=== PATIENT | female | born 1950 | race Caucasian/White ===

== ENCOUNTER 2016-05-18 08:54 | Emergency (ER) | payer MEDICARE ==
[2016-05-18 13:40] LABS: BASOPHILS 0.5 %; BASOPHILS ABSOLUTE 0.03 10/3/uL (0.0-0.16); EOSINOPHILS 0.5 %; EOSINOPHILS ABSOLUTE 0.03 10/3/uL (0.0-0.53); HEMATOCRIT 39.8 % (36.0-48.0); IMMATURE GRANULOCYTES 0.2 %; IMMATURE GRANULOCYTES ABSOLUTE 0.01 10/3/uL (0.0-0.11); LYMPHOCYTES 24.5 %; LYMPHOCYTES ABSOLUTE 1.46 10/3/uL (0.67-4.30); MANUAL DIFF NO %; MEAN CORPUS HGB CONC 32.7 g/dL (32.0-36.0); MEAN CORPUSCULAR HEMOGLOB 28.9 pg (26.0-34.0); MEAN CORPUSCULAR VOLUME 88.4 fL (80-100); MEAN PLATELET VOLUME 10.1 fL (9.2-13.0); MONOCYTES ABSOLUTE 0.42 10/3/uL (0.21-1.20); NEUTROPHILS 67.3 %; NEUTROPHILS ABSOLUTE 4.02 10/3/uL (2.02-8.40); PLATELET COUNT 210 10/3/uL (150-400); RBC DISTRIBUTION WIDTH 13.2 % (12.0-16.0)
[2016-05-18 13:55] LABS: A/G RATIO 1.1 (0.7-1.9); ALBUMIN 3.6 G/DL (3.5-5.0); BUN (BLOOD UREA NITROGEN) 19 MG/DL (6-23); CALCIUM, SERUM 8.9 MG/DL (8.5-10.4); CHLORIDE, SERUM 105 MMOL/L (96-112); CO2 (CARBON DIOXIDE) 30 MMOL/L (24-34); GFR AFRICAN AMERICAN 68 ML/MIN (>=60); GFR NON AFRICAN AMERICAN 59 ML/MIN (>=60); GLOBULIN 3.2 G/DL (2.5-4.1); GLUCOSE, SERUM 98 MG/DL (60-99); POTASSIUM, SERUM 4.6 MMOL/L (3.5-5.3); SGOT(AST) 19 U/L (5-40); SGPT(ALT) 26 U/L (5-65); SODIUM, SERUM 142 MMOL/L (135-148); TOTAL BILIRUBIN 0.6 MG/DL (0-1.2); TOTAL PROTEIN 6.8 G/DL (6.0-8.5)
[2016-05-18 13:56] LABS: ALKALINE PHOSPHATASE 65 U/L (45-117)
[2016-05-18] MEDS ORDERED: MAGOX4 PO (14:46)
[2016-05-18] MEDS ORDERED: ESTRACE1 MG PO (14:47)
[2016-05-18] MEDS ORDERED: PRIN10 PO (14:47)
[2016-05-18] MEDS ORDERED: ZOCOR20 PO (14:47)
[2016-05-18] MEDS ORDERED: FLONASE NAS (14:47)
[2016-05-18] MEDS ORDERED: VITAMIN D1000 UNI1 PO (14:47)
[2016-05-18] MEDS ORDERED: LOP25 PO (14:48)
[2016-05-18] MEDS ORDERED: LEVOTHYROXIN100 MCG PO (14:48)
[2016-05-18] MEDS ORDERED: LOP50 PO (14:48)
[2016-05-18] MEDS ORDERED: MOBIC15 MG PO (14:48)
[2016-05-18] MEDS ORDERED: FERROUS SULF325 M1 PO (14:49)
[2016-05-18] MEDS ORDERED: VITAMIN B PO (14:49)
[2016-05-18] MEDS ORDERED: KRILL OIL PO (14:49)
[2016-05-18] MEDS ORDERED: ASAB PO (14:50)
[2016-05-18 14:55] LABS: TROPONIN I <0.02 NG/ML (<0.05)
== END 2016-05-18 18:30 | disposition home or self-care (01) ==
LOC: ER 08:54
PROVIDERS: Emergency Medicine
DX: R07.9 Chest pain, unspecified (principal); Z79.899 Other long term (current) drug therapy
CPT/HCPCS: 71010; 80053; 84484; 85025; 93005; 96374; 96375; 99285; A9270-GY; J2405

== ENCOUNTER 2016-05-20 21:26 | Observation (INO) | payer MEDICARE ==
--- NOTE | ~2016-05-20 | HP ---
History And Physical [id number] [place]. [address] NAME: SUZETTE CANADA : 50 STATUS : ADM Bear PAT#: [id number] AGE: 66 ADM/REG DATE : 05/20/16 MR#: [id number] REPORT SERV DATE: 05/21/16 DICTATED BY: DALTON RUSH DATE: 05/21/16 REPORT STATUS : Draft TRANSCRIBED BY: MODL DATE: 05/21/16 DATE OF ADMISSION: 05/20/2016 OPERATING ROOM SPECIALIST: Román Vasquez MD CHIEF COMPLAINT: Chest pain and tightness. HISTORY OF PRESENT ILLNESS: A very pleasant 66-year-old white female with no known history of CAD, but followed by Dr. Vasquez for palpitations, well managed with beta valentín and pill in pocket approach. The patient states that over the past five days, she has experienced some episodic chest pain that at times radiates to her left arm. She came to our facility on Wednesday, 05/18, was discharged home from the emergency room to set up an outpatient stress test, but unfortunately, the paperwork was seemingly filled out incorrectly, and she was unable to schedule the test. She returns last night after an episode on 05/20 where she had "a whole lot of hurting" while she indicates her mid chest and left arm. She indicates around her left breast and into her left arm described as a tightness or "tight bra." She reports associated shortness of breath, nausea, and dizziness. Denies diaphoresis or belching. She did try Pepcid that did not help. Her chest discomfort was rated an 8/10 at its most intense. At time of interview in the [facility], she is pain free. She states the episode lasted several hours in duration. It was eventually resolved either with time or morphine and nitro paste by the emergency room. There is seemingly no clear pattern or exertional component, so she states that she is more aware of the discomfort at night when she is more inactive. The patient denies any personal history of myocardial infarction, stroke, DVT, or pulmonary embolus. The patient seemingly underwent a cardiac cath by Dr. Anne or Dr. Coffey at [facility] in 2010, which was negative per patient's report. The patient denies any recent fever or chills. Describes frequent palpitations. No syncopal episodes. Denies PND or orthopnea. PAST MEDICAL HISTORY: 1. Palpitations, on beta valentín with pill in pocket approach. 2. Hypertension. 3. Dyslipidemia. 4. BMI greater than 40. 5. Hypothyroid, on replacement. 6. Positive family history for early CAD. PAST SURGICAL HISTORY: 1. Hysterectomy. 2. Two hernia repairs. 3. UVPP for sleep apnea. SOCIAL HISTORY: She is . One son . Retired from [employer]. Does not have an exercise routine. Denies tobacco, alcohol, or illicits. History And Physical [address] [place]. [address] NAME: SUZETTE CANADA : 50 STATUS : ADM Bear PAT#: [id number] AGE: 66 ADM/REG DATE : 05/20/16 MR#: [id number] REPORT SERV DATE: 05/21/16 DICTATED BY: DALTON RUSH DATE: 05/21/16 REPORT STATUS : Draft TRANSCRIBED BY: SAQIB DATE: 05/21/16 FAMILY HISTORY: Father with a heart attack at 41, at 75. Mother with three strokes in her 70s, remains alive at 87. Brother with CAD and bypass at 54, remains alive at 61. Son in his 40s of a heart problem, but seemingly not a heart attack. He also had issues with some alcohol and liver disease. REVIEW OF SYSTEMS: A 14-point review of systems performed, significant for HPI. No other contributory diagnoses identified. ALLERGIES: NO KNOWN DRUG ALLERGIES. HOME MEDICATIONS: Aspirin 81 mg daily, vitamin D3 1000 units daily, vitamin B12 1000 mcg daily, estradiol 1 mg daily, ferrous sulfate 325 mg daily, Krill oil daily, levothyroxine 100 mcg daily, lisinopril 10 mg daily, magnesium 400 mg daily, metoprolol tartrate 25 mg daily p.r.n. and metoprolol tartrate 50 mg twice daily, simvastatin 20 mg daily. PHYSICAL EXAMINATION: VITAL SIGNS: Bilateral blood pressures on arrival, right 113/56 and left 103/53, this morning 107/53; pulse 66; respirations 16; temperature 97.9; O2 saturation 96% on room air. Height 5 feet 3 inches. Weight 230 pounds. BMI 40.7. GENERAL: Cooperative, in no apparent distress. HEENT: Pupils 2 mm, sclera nonicteric. Nares patent. Moist mucous membranes. No xanthelasma. NECK: Trachea midline, no thyromegaly. No JVD. No bruits. LYMPH: No cervical lymphadenopathy. No supraclavicular lymphadenopathy. RESPIRATORY: Unlabored respirations. Breath sounds clear bilaterally to posterior auscultation. No wheezes or rhonchi. CARDIOVASCULAR: Regular rate. No murmur, rub or gallop appreciated. Extremities without edema. Pulses 2+ bilaterally. ABDOMEN: Soft, nontender, nondistended, normal bowel sounds auscultated throughout. No organomegaly. SKIN: Warm, dry extremities. No pallor, or cyanosis. PSYCHIATRIC: Appropriate affect. Alert, oriented x3. LABORATORY DATA: Troponin less than 0.02 twice, potassium 4.3, BUN 30, creatinine 1.26, glucose 113, magnesium 2.4. WBC 7.5, hemoglobin 13.5, hematocrit 41.2, platelet count 216,000. EKG, sinus rhythm. PRWP. Echo 2000, normal study. Cath in 10/[address] Coffey, minimal LAD disease, 10% stenosis with minor luminal irregularities in the mid RCA EF 55%. ASSESSMENT AND PLAN: 1. Substernal chest pain in patient with risk factors of hypertension, dyslipidemia, and family history. The patient has been observed in the CP[facility] overnight to rule out myocardial infarction with serial enzymes and serial EKGs and held n.p.o. for cardiac PET this morning. Given BMI greater than 40, the patient will be discharged home if low risk, no ischemia. If anything suggestive of ischemia, Cardiology referral will be initiated. Otherwise, the patient be asked to follow up her PCP and Dr. Vasquez as appropriate. History And Physical [address] [address] NAME: SUZETTE CANADA : 50 STATUS : ADM Bear PAT#: [id number] AGE: 66 ADM/REG DATE : 05/20/16 MR#: [id number] REPORT SERV DATE: 05/21/16 DICTATED BY: DALTON RUSH DATE: 05/21/16 REPORT STATUS : Draft TRANSCRIBED BY: SAQIB DATE: 05/21/16 2. Hypertension. Monitor blood pressure. Continue home medications. Hold beta-valentín. Resume after cardiac PET. 3. Dyslipidemia. Continue statin. 4. History of palpitations. We will check a TSH and free T4. YASIR/SAQIB LIONEL Tesfaye, [employer] / [id number] CC: LIONEL Tesfaye, [employer] Shana Lowe Jr., M.D.
[2016-05-20 21:00] LABS: BASOPHILS 0.4 %; BASOPHILS ABSOLUTE 0.03 10/3/uL (0.0-0.16); EOSINOPHILS 0.7 %; EOSINOPHILS ABSOLUTE 0.05 10/3/uL (0.0-0.53); ER CBC TAT 0 Hrs 05 Mins; HEMATOCRIT 41.2 % (36.0-48.0); HEMOGLOBIN 13.5 g/dL (12.0-16.0); IMMATURE GRANULOCYTES 0.3 %; IMMATURE GRANULOCYTES ABSOLUTE 0.02 10/3/uL (0.0-0.11); LYMPHOCYTES 17.2 %; LYMPHOCYTES ABSOLUTE 1.29 10/3/uL (0.67-4.30); MANUAL DIFF NO %; MEAN CORPUS HGB CONC 32.8 g/dL (32.0-36.0); MEAN CORPUSCULAR HEMOGLOB 28.9 pg (26.0-34.0); MEAN CORPUSCULAR VOLUME 88.2 fL (80-100); MEAN PLATELET VOLUME 10.1 fL (9.2-13.0); MONOCYTES 7.3 %; MONOCYTES ABSOLUTE 0.55 10/3/uL (0.21-1.20); NEUTROPHILS 74.1 %; NEUTROPHILS ABSOLUTE 5.58 10/3/uL (2.02-8.40); PLATELET COUNT 216 10/3/uL (150-400); RBC DISTRIBUTION WIDTH 13.3 % (12.0-16.0); RED CELL COUNT 4.67 10/6/uL (4.0-5.6); WHITE BLOOD CELLS 7.5 10/3/uL (4.5-10.5)
[2016-05-20 21:08] LABS: PROTIME (NOT ORD) 12.6 SEC (12.0-14.5)
[2016-05-20 21:22] LABS: CALCIUM, SERUM 9.1 MG/DL (8.5-10.4); CHEST PAIN PROFILE TAT 0 Hrs 27 Mins; CHLORIDE, SERUM 102 MMOL/L (96-112); CO2 (CARBON DIOXIDE) 31 MMOL/L (24-34); CREATININE 1.26 MG/DL (0.55-1.02); GFR AFRICAN AMERICAN 51 ML/MIN (>=60); GFR NON AFRICAN AMERICAN 44 ML/MIN (>=60); GLUCOSE, SERUM 113 MG/DL (60-99); POTASSIUM, SERUM 4.3 MMOL/L (3.5-5.3); SODIUM, SERUM 140 MMOL/L (135-148); TROPONIN I <0.02 NG/ML (<0.05)
[2016-05-20 21:23] LABS: BUN (BLOOD UREA NITROGEN) 30 MG/DL (6-23)
[~2016-05-20 21:26] MED LIST: ASAB PO; ESTRACE1 MG PO; FERROUS SULF325 M1 PO; FLONASE NAS; KRILL OIL PO; LEVOTHYROXIN100 MCG PO; LOP25 PO; LOP50 PO; MAGOX4 PO; MOBIC15 MG PO; PRIN10 PO; VITAMIN B PO; VITAMIN D1000 UNI1 PO; ZOCOR20 PO
[2016-05-20] MEDS ORDERED: MAGOX4 PO (22:30)
[2016-05-20] MEDS ORDERED: ASAB PO (22:31)
[2016-05-20] MEDS ORDERED: GYNODIOL1 MG PO (22:31)
[2016-05-20] MEDS ORDERED: LOP50 PO (22:31)
[2016-05-20] MEDS ORDERED: PRIN10 PO (22:31)
[2016-05-20] MEDS ORDERED: LEVOTHYROXIN100 MCG PO (22:31)
[2016-05-20] MEDS ORDERED: VITAMIN D31000 UNIT PO (22:32)
[2016-05-20] MEDS ORDERED: ZOCOR20 PO (22:32)
[2016-05-20] MEDS ORDERED: KRILLOIL PO (22:35)
[2016-05-20] MEDS ORDERED: CYANO1000T PO (22:35)
[2016-05-20] MEDS ORDERED: FERROUS SULF325 M1 PO (22:36)
[2016-05-20] MEDS ORDERED: LOP25 PO (22:36)
[2016-05-21 00:05] LABS: TROPONIN I <0.02 NG/ML (<0.05)
== END 2016-05-21 16:00 | disposition home or self-care (01) ==
LOC: ER 21:26 → CDU1 22:51
PROVIDERS: Emergency Medicine
DX: R07.2 Precordial pain (principal); I10 Essential (primary) hypertension; E78.5 Hyperlipidemia, unspecified; E03.9 Hypothyroidism, unspecified; Z82.49 Family history of ischemic heart disease and other diseases of the circulatory system; Z90.710 Acquired absence of both cervix and uterus; Z68.41 Body mass index [BMI] 40.0-44.9, adult; Z98.890 Other specified postprocedural states; Z82.3 Family history of stroke; Z79.899 Other long term (current) drug therapy; Z23 Encounter for immunization; Z79.82 Long term (current) use of aspirin
CPT/HCPCS: 71020; 78492; 80048; 83735; 84439; 84443; 84484; 85025; 85610; 85730; 90662; 93005; 93017; 96374; 99285; A9270-GY; A9555; G0008; G0378; J2785